=== PATIENT | male | born 2000 | race Caucasian/White ===

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

== ENCOUNTER 2019-10-09 07:11 | Emergency (ER) | payer BC ==
[2019-10-09] MEDS ORDERED: IBUPROFEN 800 MG TABLET PO ONE (08:48)
[2019-10-09] MEDS ORDERED: MORPHINE SULFATE 10 MG/ML INJ IM ONE (08:48)
--- NOTE | 2019-10-09 08:52 | ER Document Report ---
ED Neck/Back Problem - General Chief Complaint: Back Pain Stated Complaint: BACK PAIN Time Seen by Provider: 10/09/19 08:38 Primary Care Provider: [facility] [Provider Group] - 10/11/19 Mode of Arrival: Ambulatory Information source: Patient Notes: Patient complains of lower thoracic back pain for the past week. Patient states he was working yesterday lifted a roll of carpet and had a sudden sharp pain to the back and states that his feet collapsed from underneath him. Patient states he was able to get up and ambulate after that. Patient denies any urinary retention or incontinence. Patient denies any fever. Patient denies any history of IV drug abuse. Patient denies any known injury to the back. TRAVEL OUTSIDE OF THE [place] IN LAST 30 DAYS: No - HPI Patient complains to provider of: Upper back Onset: Last week Onset: Gradual Timing: Worse Quality of pain: Sharp Pain Level: 5 Recent injury: No Associated symptoms: Upper back pain. denies: Fever, Radiation to arm, Radiation to chest, Radiation to leg Relieved by: Nothing Similar symptoms previously: No Recently seen / treated by doctor: No - Related Data Allergies/Adverse Reactions: cefprozil [From Cefzil] Allergy (Verified 04/19/15 19:02) Past Medical History - General Information source: Patient - Social History Smoking Status: Never Smoker Frequency of alcohol use: Occasional Drug Abuse: None Occupation: [employer] Lives with: Family Family History: None - Medical History Medical History: Negative Past Surgical History: Reports: Hx Tonsillectomy Review of Systems - Review of Systems Constitutional: No symptoms reported EENT: No symptoms reported Cardiovascular: No symptoms reported Respiratory: No symptoms reported Gastrointestinal: No symptoms reported. denies: Abdominal pain, Vomiting Genitourinary: No symptoms reported. denies: Dysuria, Incontinence, Retention Male Genitourinary: No symptoms reported Musculoskeletal: Back pain Skin: No symptoms reported Hematologic/Lymphatic: No symptoms reported Neurological/Psychological: Weakness - Legs gave out x1 episode Physical Exam - Vital signs Vitals: Temp Pulse Resp BP Pulse Ox 98.4 F 63 20 130/75 H 100 10/09/19 07:15 10/09/19 07:15 10/09/19 07:15 10/09/19 07:15 10/09/19 07:15 - General General appearance: Alert In distress: Mild - HEENT Head: Normocephalic, Atraumatic Eyes: Normal Conjunctiva: Normal Nasal: Normal Mouth/Lips: Normal Mucous membranes: Normal Neck: Normal, Supple. No: Lymphadenopathy - Respiratory Respiratory status: No respiratory distress Chest status: Nontender Breath sounds: Normal. No: Rales, Rhonchi, Stridor, Wheezing Chest palpation: Normal - Cardiovascular Rhythm: Regular Heart sounds: S1 appreciated, S2 appreciated - Abdominal Inspection: Normal Distension: No distension Bowel sounds: Normal Tenderness: Nontender Organomegaly: No organomegaly - Back Back: Vertebra tenderness - Lower thoracic midline back tenderness T9 area, lower thoracic paraspinal tenderness. No: Deformity/step-off, CVA tenderness - Extremities General upper extremity: Normal inspection, Nontender, Normal strength General lower extremity: Normal inspection, Nontender, Normal strength - Neurological Neuro grossly intact: Yes Cognition: Normal Jessica Coma Scale Eye Opening: Spontaneous Jessica Coma Scale Verbal: Oriented Jessica Coma Scale Motor: Obeys Commands Jessica Coma Scale Total: 15 - Psychological Associated symptoms: Normal affect, Normal mood - Skin Skin Temperature: Warm Skin Moisture: Dry Skin Color: Normal Course - Re-evaluation Re-evalutation: 10/09/19 10:17 Patient denies any improvement of pain symptoms, additional medications ordered. No acute findings on x-rays, MRI imaging ordered at this time, given concern over patient legs giving out causing him to fall 10/09/19 12:08 Patient complains of nausea with vomiting x2. Suspect is due to the pain medication he received. Still awaiting MRI results at this time. 10/09/19 13:[address] Epps regarding patient's MRI results, no additional testing advised at this time. Patient without any emergent findings that require immediate transfer or surgical consultation at this time. Will refer to orthopedics on outpatient basis. - Vital Signs Vital signs: Temp Pulse Resp BP Pulse Ox 98.6 F 70 16 102/58 L 99 10/09/19 14:09 10/09/19 14:09 10/09/19 14:09 10/09/19 14:09 10/09/19 14:09 - Diagnostic Test Radiology reviewed: Reports reviewed Discharge - Discharge Clinical Impression: Upper back pain Condition: Stable Disposition: HOME, SELF-CARE Instructions: Ice Packs ([facility]), Oral Narcotic Medication ([facility]), Upper Back Strain ([facility]) Additional Instructions: Return immediately for any new or worsening symptoms Followup with your primary care provider, call tomorrow to make a followup appointment Follow-up with orthopedics for further evaluation, call Friday for an appointment Prescriptions: Lidocaine [Lidoderm 5% (700 mg) Transdermal Patch] 1 patch TP DAILY PRN #10 adh..patch PRN Reason: Naproxen [Naprosyn 250 Nmg Tablet] 1 tab PO BID #14 tablet Hydrocodone/Acetaminophen [Medina 5-325 mg Tablet] 1 tab PO Q6 PRN #15 tablet PRN Reason: Ondansetron [Zofran Odt 4 mg Tablet] 1 tab PO Q6H #15 tab.rapdis Forms: Return to Work Referrals: [facility] [Provider Group] - 10/11/19
--- NOTE | 2019-10-09 09:40 | RADIOLOGY REPORT (SQ) ---
EXAM DESCRIPTION: T SPINE AP/LAT; L SPINE WHOLE IMAGES COMPLETED DATE/TIME: 10/09/2019 9:27 am REASON FOR STUDY: Lower thoracic back pain; back pain COMPARISON: None. FINDINGS: Two view thoracic spine: Very slight scoliotic curve. Otherwise normal alignment. No wiliam dence of fracture or bone lesion. No mediastinal widening. Five view lumbosacral spine: Slight convex left scoliotic curve. Alignment otherwise normal. No ev idence of fracture or bone lesion. Disc space narrowing at the lumbosacral junction. TECHNICAL DOCUMENTATION: JOB ID: [id number] Reading location - IP/workstation name: [email or web address]
--- NOTE | 2019-10-09 09:40 | RADIOLOGY REPORT (SQ) ---
EXAM DESCRIPTION: T SPINE AP/LAT; L SPINE WHOLE IMAGES COMPLETED DATE/TIME: 10/09/2019 9:27 am REASON FOR STUDY: Lower thoracic back pain; back pain COMPARISON: None. FINDINGS: Two view thoracic spine: Very slight scoliotic curve. Otherwise normal alignment. No wiliam dence of fracture or bone lesion. No mediastinal widening. Five view lumbosacral spine: Slight convex left scoliotic curve. Alignment otherwise normal. No ev idence of fracture or bone lesion. Disc space narrowing at the lumbosacral junction. TECHNICAL DOCUMENTATION: JOB ID: [id number] Reading location - IP/workstation name: [email or web address]
[2019-10-09] MEDS ORDERED: HYDROMORPHONE HCL INJ/PF 2 MG/ML AMPULE IM ONE (10:17)
[2019-10-09] MEDS ORDERED: ONDANSETRON 4 MG TAB.RAPDIS PO ONE (12:00)
[2019-10-09] MEDS ORDERED: LIDOCAINE 5% (700 MG) TRANSDERMAL ADH..PATCH TP ONE (12:07)
--- NOTE | 2019-10-09 12:12 | RADIOLOGY REPORT (SQ) ---
EXAM DESCRIPTION: MRI LUMBAR SPINE WITHOUT; MRI THORACIC SPINE WITHOUT IMAGES COMPLETED DATE/TIME: 10/09/2019 11:47 am REASON FOR STUDY: Thoracolumbar back pain, legs gave out, fall; Thoracolumbar back pain, legs gave o ut/fall COMPARISON: Radiographs from earlier. TECHNIQUE: Sagittal and Axial imaging includes T1, T2, STIR and gradient echo sequences. LIMITATIONS: None. FINDINGS: THORACIC LOCALIZER: No worrisome findings. ALIGNMENT: Normal. VERTEBRAE: Intact. BONE MARROW: Normal. No marrow replacement or reactive changes. HARDWARE: None in the spine. CORD: Minimal prominence of the central canal at approximately T5 through T7. Cord looks non expande d at this level. Probably physiologic. SOFT TISSUES: No soft tissue masses. THORACIC DISCS T1-T12: Nonacute. Multilevel Schmorl's nodes. T6-7 minimal protrusion without cord c ompression. LOWER CERVICAL: Incompletely imaged. No significant spinal stenosis or exit foraminal stenosis. OTHER: No other significant finding. LUMBAR LOCALIZER: No worrisome findings. ALIGNMENT: Normal. VERTEBRAE: Intact. BONE MARROW: Normal. No marrow replacement or reactive changes. HARDWARE: None in the spine. CORD: Normal in size and signal intensity. SOFT TISSUES: No soft tissue masses. LUMBAR DISCS: Mild Schmorl's node formation at L1-2 and L5-S1 without edema. This looks chronic. No significant disc bulges or hernias. No spinal stenosis detected. OTHER: No pars defect or bulky facet overgrowth. Upper pelvis intact. IMPRESSION: 1. Mild thoracic spondylosis. No fracture or bone lesion. 2. 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 No compressing mass i dentified. 3. Mild lumbar spondylosis without stenosis or fracture or malalignment. TECHNICAL DOCUMENTATION: JOB ID: [id number] 2010 [employer]- All Rights Reserved Reading location - IP/workstation name: [email or web address]
[2019-10-09 14:09] VITALS: BP 102/58
== END 2019-10-09 14:14 | disposition home or self-care (01) ==
LOC: ER 07:11
DX: M54.9 Dorsalgia, unspecified (principal); X50.9XXA Other and unspecified overexertion or strenuous movements or postures, initial encounter; Y99.0 Civilian activity done for income or pay; M47.814 Spondylosis without myelopathy or radiculopathy, thoracic region; M47.816 Spondylosis without myelopathy or radiculopathy, lumbar region; R53.1 Weakness; R11.2 Nausea with vomiting, unspecified; Z88.1 Allergy status to other antibiotic agents
CPT/HCPCS: 99285; 96372; 72146; 72148; 72110; 72070; S0119; J2270; J1170